=== PATIENT | female | born 1985 | race Caucasian/White ===

== ENCOUNTER → 2017-02-07 | Outpatient (REF) ==
[2015-01-26 00:36] VITALS: BP 118/71
[~2017-02-07] MED LIST: ACETAMINOPHEN-O1 TAB PO; CEPHALEXIN500 M1 PO; IBU800 M1 PO; PRENATAL 19 TA1 EACH PO; ZOFRAN4 M2 PO
== END ==
LOC: LAB 10:39
DX: E28.2 Polycystic ovarian syndrome (principal); L68.0 Hirsutism; L70.8 Other acne